=== PATIENT | male | born 1980 | race Caucasian/White ===

== ENCOUNTER → 2017-12-18 | Outpatient (CLI) | payer OTHER ==
--- NOTE | 2017-12-18 09:11 | USB ---
Reason for exam: clinical finding. Indicated problem(s): palpable abnormality in the left breast. Physical Findings: Nurse did not find any significant physical abnormalities on exam. US Breast LT Left complete breast ultrasound includes all four quadrants, the retroareolar region and axilla. Finding demonstrates no cystic or solid lesion seen, a 3.5cm hypoechoic lesion at the posterior nipple. These results were verbally communicated with the patient and result sheet given to the patient on 12/18/17. ASSESSMENT: Negative, BI-RAD 1 RECOMMENDATION: Clinical management of the left breast. Manage patient on a clinical basis.
== END ==
LOC: RADUSWWP 08:06
PROVIDERS: ATTEND Internal Medicine
DX: N60.02 Solitary cyst of left breast (principal)

== ENCOUNTER → 2018-02-13 | Outpatient (CLI) | payer OTHER ==
[2018-02-13 13:10] VITALS: BP 142/87; PULSE 73; RESP 18; TEMP 97.2; BMI 36.9
--- NOTE | 2018-02-13 13:51 | P.GSHP ---
History of Present Illness H&P Date: 02/13/18 Chief Complaint: pain in the left breast The patient is a 37-year-old white male with a complaint of pain in the left breast. He states that this has been ongoing for approximately 6 months. The pain is worse with irritation if the breast is touched or gets hip. He does not have pain in the right breast. He does not feel a specific lump in the left breast. He states that the left side does look swollen compared to the other side. The patient has not noted any testicular masses or lumps. The patient does not smoke, however his does smoke but not in the house. The patient does drink caffeinated beverages. The patient drinks a 2 L of Pepsi every day as well as red ball. The patient eats chocolate occasionally. He does not drink coffee or tea. Family history: 1. mother: cervical 2. father: testicular cancer in his 20's, from this 3. maternal grandfather: brain cancer 4. maternal uncle: brain cancer Surgical history: 1. Negative Medical history: 1. back pain 2. Narrowing of spine Social History: Smoke: Negative Alcohol: Weekly Drugs: Negative - Constitutional Constitutional: Denies chills, Denies fever - EENT Comment: twitch of eyes Eyes: denies blurred vision, denies pain Ears: deny: decreased hearing, tinnitus Ears, nose, mouth and throat: Reports sore throat, Denies headache - Breasts Breasts: bilateral: as per HPI - Cardiovascular Cardiovascular: Denies chest pain, Denies shortness of breath - Respiratory Respiratory: Denies cough, Denies 7 - Gastrointestinal Gastrointestinal: Denies abdominal pain, Denies diarrhea, Denies nausea, Denies vomiting - Genitourinary (Male) Genitourinary: Denies dysuria, Denies hematuria - Musculoskeletal Comment: Arthritis in his back, degenerative disc disease - Integumentary Comment: dry skin Integumentary: Denies pruritus, Denies rash - Neurological Comment: related to back DJD, right hand feels asleep Neurological: Reports numbness, Denies weakness - Psychiatric Psychiatric: Denies anxiety, Denies depression - Endocrine Endocrine: Reports fatigue, Denies weight change - Hematologic/Lymphatic Comment: none - Allergic/Immunologic Allergic/Immunologic: Reports seasonal allergies Past Medical History Past Medical History: No Reported History History of Any Multi-Drug Resistant Organisms: None Reported Past Surgical History: No Surgical Hx Reported Past Psychological History: No Psychological Hx Reported Smoking Status: Never smoker - Past Family History Father Family Medical History: Cancer Additional Family Medical History / Comment(s): testicular Mother Family Medical History: Cancer, Thyroid Disorder Additional Family Medical History / Comment(s): cervical cancer Medications and Allergies Home Medications Medication Instructions Recorded Confirmed Type Loratadine [Claritin] 10 mg PO DAILY 02/13/18 02/13/18 History Allergies Allergy/AdvReac Type Severity Reaction Status Date / Time bee pollen Allergy Swelling Verified 02/13/18 13:12 Surgical - Exam Vital Signs Temp Pulse Resp BP Pulse Ox 97.2 F L 73 18 142/87 98 02/13/18 13:04 02/13/18 13:04 02/13/18 13:04 02/13/18 13:04 02/13/18 13:04 BMI 37 - General obese - Eyes normal ocular movement - ENT no hearing loss, no congestion - Neck no masses, trachea midline - Respiratory normal respiratory effort, clear to auscultation - Cardiovascular Rhythm: regular Heart Sounds: normal: S1, S2 - Abdomen Abdomen: soft, non tender, no guarding, no rigid, no rebound - Genitourinary no testicular masses bilateral testicles non-tender absent: scrotal mass/hydrocele (no masses of concern) - Integumentary dry skin over abdomen - Neurologic no disoriented, no combative - Musculoskeletal normal gait - Psychiatric oriented to time, oriented to person, oriented to place, speech is normal, memory intact Breast examination: Right breast: Multi-positional exam no dominant masses or nodules of concern Right axilla: No adenopathy of concern Left breast: Slightly larger than right breast, multi-positional exam findings consistent with some gynecomastia otherwise no lesions of concern Left axilla: No adenopathy of concern Results Ultrasound results reviewed of the left breast felt to be benign BIRADS 1 Assessment and Plan Assessment: Impression: 1. Left breast pain, felt to be related to caffeine intake, probable mild gynecomastia 2. Degenerative disc disease Plan: 1. Patient is encouraged to stop his caffeine intake, nicotine exposure (2 -2 L of Pepsi per day, Red Bull daily, exposure to second hand cigarette smoke) Patient will follow up in 2 months. At this time the patient does not appear to have any masses in his breast which would warrant biopsy. Cc: Dr. Lanza
== END ==
LOC: WWCWWP 12:56
PROVIDERS: ATTEND Surgery
DX: Z53.9 Procedure and treatment not carried out, unspecified reason (principal)

== ENCOUNTER → 2018-05-09 | Outpatient (CLI) | payer OTHER ==
[2018-05-09 11:52] VITALS: BP 124/77; PULSE 73; RESP 18; TEMP 96.8
--- NOTE | 2018-05-09 12:03 | P.PN ---
Subjective Progress Note Date: 05/09/18 Principal diagnosis: breast pain Dennis is a 37-year-old white male who was initially seen in January 2018 with a complaint of left breast pain. The patient at the time of physical exam did not have any discrete masses in either breast and no testicular masses or lumps. The patient at that time was drinking large quantities of caffeinated beverages which she has since stopped that with no resolution in the pain. The patient states that he has persistent stinging pain in the left nipple periareolar posterior region which has not improved to this point in time. The patient is not complaining of any pain on the right side. Objective - Exam BMI 37.7 - Constitutional General appearance: Present: obese - EENT Eyes: Present: EOMI ENT: Present: hearing grossly normal - Neck Neck: Present: normal ROM - Respiratory Respiratory: bilateral: CTA - Cardiovascular Rhythm: regular Heart sounds: normal: S1, S2 - Gastrointestinal General gastrointestinal: Present: soft - Integumentary Integumentary: Present: normal turgor - Musculoskeletal Musculoskeletal: Present: gait normal - Psychiatric Psychiatric: Present: A&O x's 3, appropriate affect, intact judgment & insight - Additional findings Additional findings: Breast examination: Right breast multiple positional exam no dominant masses or nodules of concern no pain to palpation Right axilla: No adenopathy of concern Left breast: Increased fullness posterior perianal complex consistent with gynecomastia no dominant masses or nodules of concern otherwise Left axilla: No adenopathy of concern Assessment and Plan Assessment: Impression: 1. Symptomatic gynecomastia 2. Failed response to stopping caffeine 3. back pain; DJD 4. arthritis in back I discussed with the patient and his options related to the symptomatic macromastia. These would include consideration of endocrine manipulation and would consider evaluation by account administrator. We could also consider surgical resection of the area in the left breast. After discussion the patient would prefer to have resection of the area of concern. They understand the risks and benefits. Risks include bleeding infection possible reaction to the anesthetic. Additionally they understand that this may not alleviate all of the symptoms or the symptoms could return. We have talked about the possibility of primrose oil been of benefit. He is going to do a trial of primrose oil prior to operative intervention. Plan: 1. Resection of left breast gynecomastia if the patient has persistent breast pain at that site 2. Medical clearance by Dr. Lanza 3. Add primrose oil to the patient's treatment Cc: Dr. Lanza
== END | disposition home or self-care (01) ==
LOC: WWCWWP 11:21
PROVIDERS: ATTEND Surgery
DX: Z53.9 Procedure and treatment not carried out, unspecified reason (principal)

== ENCOUNTER → 2018-05-23 | Day surgery (SDC) | payer OTHER ==
[2018-05-23 10:49] VITALS: RESP 16; BMI 37.6
[2018-05-23 12:21] VITALS: BP 129/85; PULSE 62; TEMP 98.1
--- NOTE | 2018-05-23 13:23 | USB ---
EXAMINATION TYPE: US biopsy breast VAD LT DATE OF EXAM: 05/23/2018 CLINICAL HISTORY: N63 LT BREAST LUMP. TECHNIQUE: Ultrasound guided core biopsy of left breast. COMPARISON: 12/18/2017 FINDINGS: The procedure of ultrasound guided core biopsy was explained to the patient. Benefits, alternatives, and risks were discussed. An informed consent was then obtained. A timeout was performed. The patient was placed in supine positioning for imaging and for the procedure. The overlying skin was prepped and draped in usual sterile fashion. Lidocaine buffered with bicarbonate was used as anesthetic into the skin and subcutaneous tissue up to area of concern in the left breast. A tito was made with surgical scalpel. Under ultrasound guidance, a 12-gauge vacuum assisted biopsy gun device was used to obtain 6 core samples. The patient tolerated the procedure well without any immediate complication. The patient was kept in the radiology department for short stay after the procedure and then discharged home in stable condition. IMPRESSION: 1. Successful ultrasound-guided core biopsy of retroareolar density. Recommendations: 1. Recommendations are pending pathology results. Pathology Results: Benign LEFT BREAST AT NIPPLE, ULTRASOUND GUIDED CORE BIOPSY: Gynecomastia. Recommendation Manage clinically. No follow up necessary. CAMMIE
== END ==
LOC: RADUSWWP 10:16
PROVIDERS: ATTEND Surgery
DX: N62 Hypertrophy of breast (principal); N63.20 Unspecified lump in the left breast, unspecified quadrant; Z91.030 Bee allergy status
CPT/HCPCS: 88305; 19083; J2001

== ENCOUNTER → 2018-05-29 | Outpatient (CLI) | payer OTHER ==
[2018-05-29 14:54] VITALS: BP 129/87; PULSE 71; RESP 18; TEMP 97.4; BMI 38.3
--- NOTE | 2018-05-29 15:09 | P.PN ---
Subjective Progress Note Date: 05/29/18 Principal diagnosis: Gynecomastia Dennis is a 37-year-old white male who underwent a left breast core biopsy [id number]. Pathology was consistent with gynecomastia. The patient has no complaints related to the biopsy. He presented initially with a complaint of pain in his left breast. Of concern is the fact that his mother had cervical cancer and his father had testicular cancer in his 20s and from testicular cancer the patient had no history of any testicular masses and no testicular masses or lumps were noted on physical examination. Physical examination: Lungs: Clear Heart: Regular rate and rhythm Examination of the left breast reveals it to be mildly swollen with mild ecchymosis near the area of the biopsy Impression: 1. Symptomatic macromastia 2. Back pain 3. Narrowing of the spine 4. Family history of cancer Plan: 1. At this time patient does not want to undergo surgical excision of the area of gynecomastia patient will be treated conservatively, he will attempt a trial of [place] oil 2. Medical management of medical conditions 3. Follow-up here in 1 month CC:DR. Lanza Objective - Vital Signs Vital signs: Vital Signs Temp 97.4 F L 05/29/18 14:51 Pulse 71 05/29/18 14:51 Resp 18 05/29/18 14:51 BP 129/87 05/29/18 14:51 Pulse Ox 96 05/29/18 14:51 Intake & Output 05/28/18 05/29/18 05/29/18 18:59 06:59 18:59 Weight 124.738 kg
== END ==
LOC: WWCWWP 14:05
PROVIDERS: ATTEND Surgery
DX: Z53.9 Procedure and treatment not carried out, unspecified reason (principal)

== ENCOUNTER → 2018-07-03 | Outpatient (CLI) | payer OTHER ==
[2018-07-03 13:58] VITALS: BP 124/80; PULSE 61; RESP 16; TEMP 97.8; BMI 38.3
--- NOTE | 2018-07-03 14:06 | P.PN ---
Subjective Progress Note Date: 07/03/18 Principal diagnosis: Patient is a 37-year-old white male who underwent a left core biopsy and [id number]. Pathology was consistent with gynecomastia. The patient was initially seen secondary to pain in the left breast and the pain has remained persistent. He at this time is staying away from caffeine and nicotine and is taking primrose oil. Despite this he has pain but states it is only when the area is touched. Of concern is the fact that his mother had cervical cancer and his father had testicular cancer in his 20s and from the testicular cancer. The patient has not had any testicular masses. Medical history 1. Spinal stenosis 2. back pain 3. Symptomatic macromastia Objective - Vital Signs Vital signs: Vital Signs Temp 97.8 F 07/03/18 13:55 Pulse 61 07/03/18 13:55 Resp 16 07/03/18 13:55 BP 124/80 07/03/18 13:55 Pulse Ox 93 L 07/03/18 13:55 Intake & Output 07/02/18 07/03/18 07/03/18 18:59 06:59 18:59 Weight 124.738 kg - Exam BMI 38.4 - Constitutional General appearance: Present: obese - EENT Eyes: Present: EOMI ENT: Present: hearing grossly normal - Neck Neck: Present: normal ROM - Respiratory Respiratory: bilateral: CTA - Cardiovascular Rhythm: regular Heart sounds: normal: S1, S2 - Gastrointestinal General gastrointestinal: Present: soft - Integumentary Integumentary: Present: normal turgor - Psychiatric Psychiatric: Present: A&O x's 3, appropriate affect - Additional findings Additional findings: Breast examination: Right breast slightly enlarged with fibrocystic changes Right axilla: No adenopathy of concern Left breast: Fibrocystic changes with gynecomastia larger than the right breast Left axilla: No adenopathy of concern Assessment and Plan Assessment: Impression: 1. Symptomatic macromastia has improved slightly 2. Back pain 3. Narrowing of the spinal canal 4. Family history of cancer Plan: 1. This time the patient does not wish any surgical excision of the area of gynecomastia he is being followed conservatively 2. Repeat examination of the breast in 1 year unless patient has any questions or concerns sooner 3. Medical management of medical conditions Cc: Dr. Lanza
== END ==
LOC: WWCWWP 13:10
PROVIDERS: ATTEND Surgery
DX: Z53.9 Procedure and treatment not carried out, unspecified reason (principal)

== ENCOUNTER → 2019-01-19 | Outpatient (CLI) | payer OTHER ==
--- NOTE | 2019-01-19 13:22 | XR ---
EXAMINATION TYPE: XR lumbar spine 2 or 3V DATE OF EXAM: 01/19/2019 COMPARISON: 05/20/2015 HISTORY: Right thoracic pain TECHNIQUE: 3 view lumbar spine FINDINGS: There are 5 lumbar-type vertebral bodies. Pedicles are intact. Disc heights are preserved. Vertebral body heights are preserved. IMPRESSION: 1. Normal three-view lumbar spine
--- NOTE | 2019-01-19 13:24 | XR ---
EXAMINATION TYPE: XR thoracic spine 2V DATE OF EXAM: 01/19/2019 COMPARISON: None HISTORY: Right thoracic pain TECHNIQUE: 2 views thoracic spine FINDINGS: There are 12 thoracic type vertebral bodies. Pedicles are intact. Disc heights are preserve d. Vertebral body heights are preserved. IMPRESSION: 1. Normal two-view thoracic spine.
== END | disposition home or self-care (01) ==
LOC: RADXRYALE 12:50
PROVIDERS: ATTEND Internal Medicine
DX: M54.6 Pain in thoracic spine (principal); M54.5 Low back pain
CPT/HCPCS: 72070; 72100